=== PATIENT | male | born 1940 | race Hispanic/Latino ===

== ENCOUNTER 2017-11-03 07:21 | Day surgery (SDC) | payer OTHER ==
[2017-10-28 10:21] VITALS: BP 163/82
[2017-10-28 10:26] LABS: BASOPHILS % (AUTO) 0.5 % (0.0-5.0); EOSINOPHILS % (AUTO) 3.3 % (0.0-8.0); HEMATOCRIT 43.9 % (42-54); LYMPHOCYTES % (AUTO) 36.2 % (21.0-51.0); MEAN CORPUSCULAR HEMOGLOBIN 31.6 pg (27.0-33.0); MEAN CORPUSCULAR HGB CONC 34.6 g/dL (32.0-36.0); MEAN CORPUSCULAR VOLUME 91.4 fL (79-99); MONOCYTES % (AUTO) 8.1 % (3.0-13.0); NEUTROPHILS % (AUTO) 51.9 % (40.0-77.0); PLATELET COUNT (AUTO) 176 K/uL (130-400); RED BLOOD CELL COUNT(AUTO) 4.81 MIL/uL (4.50-6.20); RED CELL DISTRIBUTION WIDTH 15.6 % (11.0-15.5); WHITE BLOOD COUNT (AUTO) 8.4 K/uL (4.8-10.8)
[2017-10-28 10:38] LABS: CREATININE 0.9 mg/dL (0.5-1.5); POTASSIUM 4.1 mmol/L (3.5-5.1)
[2017-10-28 10:40] LABS: INR 0.95 (0.85-1.15); PARTIAL THROMBOPLASTIN TIME 25.6 SEC (26.3-35.5)
[~2017-11-03] VITALS: Ht 157.5 cm; Wt 63.1 kg
[~2017-11-03 07:21] MED LIST: ASPI-555 PO; ATOR40TA71 PO; CHOL500050 PO; CLOP75TA14 PO; LEVO25TA54 PO; LISI-617 PO; SODIUM CHLORIDE 0.9% 1000ML 1,000 ML IV SCH
[2017-11-03 07:50] VITALS: BP 152/78
[2017-11-03] MEDS ORDERED: FENTANYL CITRATE PF 50 MCG/1 ML 2ML VIAL ONE (08:07)
[2017-11-03] MEDS ORDERED: MIDAZOLAM HCL 1 MG/ML 2ML VIAL ONE ×2 (08:08→11:32)
[2017-11-03] MEDS ORDERED: LIDOCAINE HCL 2% VISCOUS 15 ML UDCUP PO SCH (08:30)
[2017-11-03] MEDS ORDERED: FLUMAZENIL 0.1MG/1ML 5ML VIAL IV ONE (10:30)
[2017-11-03] MEDS ORDERED: NALOXONE HCL 0.4 MG/1 ML ML ONE (10:30)
[2017-11-03 13:00] VITALS: BP 109/59
[2017-11-03 13:15] VITALS: BP 114/56
[2017-11-03 13:30] VITALS: BP 119/65
[2017-11-03 13:45] VITALS: BP 111/63
== END 2017-11-03 13:40 | disposition home or self-care (01) ==
LOC: DAH 07:21
PROVIDERS: ATTEND Internal Medicine Cardiovascular Disease
DX: Q21.1 Atrial septal defect (principal); I08.0 Rheumatic disorders of both mitral and aortic valves; H44.9 Unspecified disorder of globe; I10 Essential (primary) hypertension; Z86.73 Personal history of transient ischemic attack (TIA), and cerebral infarction without residual deficits; E78.5 Hyperlipidemia, unspecified
CPT/HCPCS: 36415; 80048; 85025; 85610; 85730; 93312; 93325; 99156; A4606; J2250; J3010; J7030; J2310; J3490